=== PATIENT | female | born 1990 | race American Indian/Alaskan Native ===

== ENCOUNTER 2019-03-25 13:10 | Emergency (ER) | payer SELFPAY ==
[2019-03-25 13:18] VITALS: BP 122/76
--- NOTE | 2019-03-25 13:23 | Emergency Department Report ---
Chief Complaint: Medical Clearance Stated Complaint: RABIES SHOT Time Seen by Provider: 03/25/19 13:19 - HPI History of Present Illness: This is a 28-year-old female that presents for a rabbies vaccine. Patient was bit yesterday. This initial assessment/diagnostic orders/clinical plan/treatment(s) is/are subject to change based on patient's health status, clinical progression and re- assessment by fellow clinical providers in the ED. Further treatment and workup at subsequent clinical providers discretion. Patient/guardians urged not to elope from the ED as their condition may be serious if not clinically assessed and managed. Initial orders include: 1- Patient sent to [facility] for further evaluation and treatment 2- rabbis vaccine needed - Exam Vital Signs: Vital Signs 03/25/19 03/25/19 13:13 13:18 Temperature 97.9 F 97.9 F Pulse Rate 90 91 H Respiratory 16 16 Rate Blood Pressure 122/76 122/76 O2 Sat by Pulse 98 97 Oximetry MSE screening note: Focused history and physical exam performed. Due to findings the following was ordered: ED Disposition for MSE Condition: Stable
[2019-03-25] MEDS ORDERED: RABIES IMMUNE GLOBULIN P/F 300 UNIT/ML INJ 5 ML IM ONE (16:38)
[2019-03-25] MEDS ORDERED: RABIES VACCINE, HUMAN DIPLOID/PF 2.5 UNIT/ML VIAL IM ONE (16:38)
--- NOTE | 2019-03-25 16:51 | Emergency Department Report ---
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 She was directed to the emergency department today for rabies vaccination. 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 She does not complain of pain or drainage from that site. She states it was a stray dog that was not captured. -: Sudden Location: lower extremity Associated Symptoms: denies other symptoms - Related Data Allergies Allergy/AdvReac Type Severity Reaction Status Date / Time Sulfa (Sulfonamide Allergy Unknown Verified 03/25/19 13:16 Antibiotics) ED Review of Systems ROS: Stated complaint: RABIES SHOT Other details as noted in HPI Comment: All other systems reviewed and negative ED Past Medical Hx - Past Medical History Previous Medical History?: No - Surgical History Additional Surgical History: Hernis repair - Social History Smoking Status: Never Smoker Substance Use Type: None ED Physical Exam - General Limitations: No Limitations General appearance: alert - Head Head exam: Present: atraumatic - Eye Eye exam: Present: normal appearance - ENT ENT exam: Present: mucous membranes moist - Neck Neck exam: Present: normal inspection - Extremities Exam Extremities exam: Present: other (puncture wound popliteal area through dermis of left knee without drainage or signs of infection) - Neurological Exam Neurological exam: Present: alert, CN II-XII intact. Absent: motor sensory deficit - Psychiatric Psychiatric exam: Present: normal affect, normal mood - Skin Skin exam: Present: warm, dry, other (as above described) ED Course Vital Signs 03/25/19 03/25/19 13:13 13:18 Temperature 97.9 F 97.9 F Pulse Rate 90 91 H Respiratory 16 16 Rate Blood Pressure 122/76 122/76 O2 Sat by Pulse 98 97 Oximetry Critical care attestation.: If time is entered above; I have spent that time in minutes in the direct care of this critically ill patient, excluding procedure time. ED Disposition Clinical Impression: Dog bite of left knee Qualifiers: Encounter type: initial encounter Qualified Code(s): S81.052A - Open bite, left knee, initial encounter; W54.0XXA - Bitten by dog, initial encounter Disposition: DC-01 TO HOME OR SELFCARE Is pt being admited?: No Does the pt Need Aspirin: No Condition: Stable Instructions: Rabies Immune Globulin (Injection), Rabies Vaccine (Injection), Rabies (ED) Additional Instructions: Complete vaccination schedule as per handout information. Referrals: PRIMARY CARE, [Primary Care Provider] - 3-5 Days Time of Disposition: 16:51
== END 2019-03-25 17:49 | disposition home or self-care (01) ==
LOC: ED 13:10
DX: S81.052A Open bite, left knee, initial encounter (principal); W54.0XXA Bitten by dog, initial encounter; Y93.89 Activity, other specified; Y92.89 Other specified places as the place of occurrence of the external cause; Y99.8 Other external cause status
CPT/HCPCS: 90375; 90471; 90675; 96372; 99282